=== PATIENT | male | born 1955 | race Caucasian/White ===

== ENCOUNTER 2016-10-01 10:09 | Emergency (ER) | payer OTHER ==
[2016-10-01] MEDS ORDERED: Sodium Chloride 0.9% 10 ML Syringe FLUSH PRN (10:26)
[2016-10-01] MEDS ORDERED: Aspirin 81 MG Tab.Chew PO ONE (10:26)
[2016-10-01] MEDS ORDERED: Tenecteplase 50 MG Kit IV ONE (10:27)
[2016-10-01] MEDS ORDERED: Heparin Sodium 5,000 Units/ML Vial IVPUSH ONE (10:27)
[2016-10-01] MEDS ORDERED: Tenecteplase 50 MG Kit ONE (10:28)
[2016-10-01] MEDS ORDERED: Heparin Sodium/D5W 25,000 UNITS/500 ML BAG IV SCH (10:30)
[2016-10-01] MEDS: Nitroglycerin 0.4 MG Tab.SL SL PRN ×3 (10:48→10:58)
[2016-10-01] MEDS ORDERED: Clopidogrel 75 MG Tab PO ONE (10:56)
--- NOTE | 2016-10-01 10:56 | EDM.PDOC ---
ED HPI GENERAL MEDICAL PROBLEM - General Chief Complaint: Chest Pain Stated Complaint: CHEST PAIN Time Seen by Provider: 10/01/16 10:13 Source of Information: Reports: Patient History Limitations: Reports: No Limitations - History of Present Illness INITIAL COMMENTS - FREE TEXT/NARRATIVE: The patient presents with chest pain. Yesterday he had an episode about 1:30 and it went away after 30 minutes. He has shortness of breath and he is diaphoretic with it. It is worse with exertion. He does not have a history of ID. He does not smoke and he has no history of HTN. He does not have a history of diabetes. He denies fever or chills. He has no abdominal pain, nausea and vomiting. This episode started at 8:30 this morning. Onset: Sudden Duration: Hour(s): (8:30 this morning) Location: Reports: Chest Quality: Reports: Sharp (and squeezing) Severity: Moderate Improves with: Reports: None Worsens with: Reports: Movement Associated Symptoms: Reports: Chest Pain, Shortness of Breath Right Chest Pain Score (Numeric/FACES): 5 - Related Data Allergies Allergy/AdvReac Type Severity Reaction Status Date / Time No Known Allergies Allergy Verified 10/01/16 10:11 Home Meds: Home Meds Aspirin [Kristian Chewable] 81 mg PO DAILY 07/28/15 [History] Past Medical History - Infectious Disease History Infectious Disease History: Reports: Chicken Pox, Mumps - Past Surgical History HEENT Surgical History: Reports: Tonsillectomy GI Surgical History: Reports: Appendectomy Musculoskeletal Surgical History: Reports: Shoulder Surgery Social & Family History - Family History Family Medical History: Noncontributory - Tobacco Use Smoking Status *Q: Never Smoker Second Hand Smoke Exposure: No - Caffeine Use Caffeine Use: Reports: None - Recreational Drug Use Recreational Drug Use: No ED ROS GENERAL - Review of Systems Review Of Systems: See Below Constitutional: Reports: No Symptoms HEENT: Reports: No Symptoms Respiratory: Reports: Shortness of Breath Cardiovascular: Reports: Chest Pain Endocrine: Reports: No Symptoms GI/Abdominal: Reports: No Symptoms : Reports: No Symptoms Musculoskeletal: Reports: No Symptoms Skin: Reports: Diaphoresis Neurological: Reports: No Symptoms ED EXAM, GENERAL - Physical Exam Exam: See Below Exam Limited By: No Limitations General Appearance: Alert, No Apparent Distress Ears: Normal External Exam Nose: Normal Inspection Head: Atraumatic, Normocephalic Neck: Normal Inspection Respiratory/Chest: No Respiratory Distress, Lungs Clear, Normal Breath Sounds Cardiovascular: Regular Rate, Rhythm, No Edema, No Murmur GI/Abdominal: Soft, Non-Tender, No Organomegaly, No Mass Back Exam: Normal Inspection Extremities: Normal Inspection Neurological: Alert, Oriented, No Motor/Sensory Deficits EKG INTERPRETATION EKG Date: 10/01/16 Time: 10:14 Rhythm: NSR Rate (beats/min): 61 Blue: normal P-wave: present QRS: normal ST-T: elevated (V2 through V6) QT: normal Course - Vital Signs Last Recorded V/S: Last Vital Signs Temp 98.4 F 10/01/16 10:12 Pulse 64 10/01/16 10:12 Resp 13 10/01/16 10:12 BP 163/101 H 10/01/16 10:12 Pulse Ox 100 10/01/16 10:12 - Orders/Labs/Meds Orders: Active Orders 24 hr Category Date Time Status Cardiac Monitoring [RC] . DIRECTED Care 10/01/16 10:26 Active EKG Documentation Completion [RC] STAT Care 10/01/16 10:26 Active Oxygen Therapy [RC] PRN Care 10/01/16 10:26 Active Peripheral IV Care [RC] . DIRECTED Care 10/01/16 10:27 Active Chest 1V Frontal [CR] Stat Exams 10/01/16 10:27 Taken CBC W/O DIFF,HEMOGRAM [HEME] MOTH@0700 Lab 10/04/16 07:00 Ordered CBC W/O DIFF,HEMOGRAM [HEME] MOTH@0700 Lab 10/07/16 07:00 Ordered CBC W/O DIFF,HEMOGRAM [HEME] MOTH@0700 Lab 10/11/16 07:00 Ordered CBC W/O DIFF,HEMOGRAM [HEME] MOTH@0700 Lab 10/14/16 07:00 Ordered CBC W/O DIFF,HEMOGRAM [HEME] MOTH@0700 Lab 10/18/16 07:00 Ordered CBC W/O DIFF,HEMOGRAM [HEME] MOTH@0700 Lab 10/21/16 07:00 Ordered COMPREHENSIVE METABOLIC PN,CMP [CHEM] Stat Lab 10/01/16 10:26 Ordered TROPONIN I [CHEM] Stat Lab 10/01/16 10:26 Ordered Heparin Sodium/D5W [Heparin 25,000 Units in D5W 500 ML] Med 10/01/16 10:30 Active 25,000 units in 500 ml IV TITRATE Sodium Chloride 0.9% [Saline Flush] Med 10/01/16 10:26 Active 10 ml FLUSH ASDIRECTED PRN Peripheral IV Insertion Adult [OM.PC] Stat Oth 10/01/16 10:26 Ordered Medication Orders Heparin Sodium/Dextrose (Heparin 25,000 Units In D5w 500 Ml) 25,000 units in 500 mls @ 21.222 mls/hr IV TITRATE ALESHA; 9 UNITS/KG/HR PRN Reason: Protocol Sodium Chloride (Saline Flush) 10 ml FLUSH ASDIRECTED PRN PRN Reason: Keep Vein Open Labs: Laboratory Tests 10/01/16 Range/Units 10:35 WBC 6.83 (4.23-9.07) K/mm3 RBC 5.48 (4.63-6.08) M/mm3 Hgb 15.6 (13.7-17.5) gm/L Hct 45.6 (40.1-51.0) % MCV 83.2 (79.0-92.2) fl MCH 28.5 (25.7-32.2) pg MCHC 34.2 (32.2-35.5) g/dl RDW Std Deviation 39.8 (35.1-43.9) fL Plt Count 214 (163-337) K/mm3 MPV 10.7 (9.4-12.3) fl Neut % (Auto) 70.1 H (34.0-67.9) % Lymph % (Auto) 20.1 L (21.8-53.1) % [place] % (Auto) 6.7 (5.3-12.2) % Eos % (Auto) 2.6 (0.8-7.0) Baso % (Auto) 0.4 (0.1-1.2) % Neut # (Auto) 4.78 (1.78-5.38) K/mm3 Lymph # (Auto) 1.37 (1.32-3.57) K/mm3 [place] # (Auto) 0.46 (0.30-0.82) K/mm3 Eos # (Auto) 0.18 (0.04-0.54) K/mm3 Baso # (Auto) 0.03 (0.01-0.08) K/mm3 Meds: Medications Generic Name Dose Route Start Last Admin Trade Name Freq PRN Reason Stop Dose Admin Heparin Sodium/Dextrose 25,000 units in 500 mls @ 21.222 mls/hr 10/01/16 10: 30 Heparin 25,000 Units In D5w 500 Ml IV TITRATE ALESHA Protocol 9 UNITS/KG/HR Sodium Chloride 10 ml 10/01/16 10:26 Saline Flush FLUSH ASDIRECTED PRN Keep Vein Open Discontinued Medications Generic Name Dose Route Start Last Admin Trade Name Freq PRN Reason Stop Dose Admin Aspirin 324 mg 10/01/16 10:26 Aspirin PO 10/01/16 10:27 ONETIME ONE Clopidogrel Bisulfate 300 mg 10/01/16 10:56 Plavix PO 10/01/16 10:57 ONETIME ONE Heparin Sodium (Porcine) 5,000 units 10/01/16 10:27 Heparin Sodium IVPUSH 10/01/16 10:28 ONETIME ONE Nitroglycerin 0.4 mg 10/01/16 10:29 Nitrostat SL 10/01/16 10:40 Q5M PRN Chest Pain Tenecteplase Confirm 10/01/16 10:28 Tnkase Administered 10/01/16 10:29 Dose 50 mg .ROUTE .STK-MED ONE Tenecteplase 50 mg 10/01/16 10:27 Tnkase IV 10/01/16 10:28 ONETIME ONE Protocol - Re-Assessments/Exams Free Text/Narrative Re-Assessment/Exam: 10/01/16 11:05 I ordered an IV saline lock, oxygen, aspirin, EKG, labs and CXR. His EKG shows a NSR with ST elevation in the anteriorlateral leads. This is consistent with a STEMI. I ordered TnKase 50mg IV, nitro 0.4mg SL X 3, heparin bolus of 5,000 units, and 1,000units per hour. I called [facility] and talked with Dr De Dios and he accepted the patient. 10/01/16 11:08 I also talked with Dr Sanchez in the ER. Departure - Departure Time of Disposition: 11:15 Disposition: DC/Tfer to Acute Hospital 02 Reason for Transfer *Q: Primary PCI Indicated Condition: serious Clinical Impression: ST elevation (STEMI) myocardial infarction Qualifiers: Involved coronary artery: other anterior wall coronary artery Qualified Code(s) : I21.09 - ST elevation (STEMI) myocardial infarction involving other coronary artery of anterior wall Forms: ED Department Discharge - My Orders Last 24 Hours: My Active Orders 10/01/16 10:26 Cardiac Monitoring [RC] . DIRECTED EKG Documentation Completion [RC] STAT Oxygen Therapy [RC] PRN COMPREHENSIVE METABOLIC PN,CMP [CHEM] Stat TROPONIN I [CHEM] Stat Sodium Chloride 0.9% [Saline Flush] 10 ml FLUSH ASDIRECTED PRN Peripheral IV Insertion Adult [OM.PC] Stat 10/01/16 10:27 Peripheral IV Care [RC] . DIRECTED Chest 1V Frontal [CR] Stat 10/01/16 10:30 Heparin Sodium/D5W [Heparin 25,000 Units in D5W 500 ML] 25,000 units in 500 ml IV TITRATE 10/04/16 07:00 CBC W/O DIFF,HEMOGRAM [HEME] MOTH@0700 10/07/16 07:00 CBC W/O DIFF,HEMOGRAM [HEME] MOTH@0700 10/11/16 07:00 CBC W/O DIFF,HEMOGRAM [HEME] MOTH@0700 10/14/16 07:00 CBC W/O DIFF,HEMOGRAM [HEME] MOTH@0700 10/18/16 07:00 CBC W/O DIFF,HEMOGRAM [HEME] MOTH@0700 10/21/16 07:00 CBC W/O DIFF,HEMOGRAM [HEME] MOTH@0700 - Assessment/Plan Last 24 Hours: My Active Orders 10/01/16 10:26 Cardiac Monitoring [RC] . DIRECTED EKG Documentation Completion [RC] STAT Oxygen Therapy [RC] PRN COMPREHENSIVE METABOLIC PN,CMP [CHEM] Stat TROPONIN I [CHEM] Stat Sodium Chloride 0.9% [Saline Flush] 10 ml FLUSH ASDIRECTED PRN Peripheral IV Insertion Adult [OM.PC] Stat 10/01/16 10:27 Peripheral IV Care [RC] . DIRECTED Chest 1V Frontal [CR] Stat 10/01/16 10:30 Heparin Sodium/D5W [Heparin 25,000 Units in D5W 500 ML] 25,000 units in 500 ml IV TITRATE 10/04/16 07:00 CBC W/O DIFF,HEMOGRAM [HEME] MOTH@0700 10/07/16 07:00 CBC W/O DIFF,HEMOGRAM [HEME] MOTH@69910/11/16 07:00 CBC W/O DIFF,HEMOGRAM [HEME] MOTH@69910/14/16 07:00 CBC W/O DIFF,HEMOGRAM [HEME] MOTH@69910/18/16 07:00 CBC W/O DIFF,HEMOGRAM [HEME] MOTH@69910/21/16 07:00 CBC W/O DIFF,HEMOGRAM [HEME] MOTH@699
[2016-10-01 15:55] VITALS: BP 130/82
--- NOTE | 2016-10-04 10:19 | CR ---
Chest: Frontal view of the chest was obtained. Comparison: Previous chest x-ray of 07/28/[address] of 07/28/15. Heart size and mediastinum are within normal limits for technique. Lungs are clear. No discrete bony abnormality is identified. Impression: 1. Nothing acute is identified on portable chest x-ray. Diagnostic code #1 MTDD
== END 2016-10-01 11:40 ==
LOC: JD.ED 10:09 → SUPCPDRO 10:09 → JD.ED 11:40
DX: I21.09 ST elevation (STEMI) myocardial infarction involving other coronary artery of anterior wall (principal); Z90.49 Acquired absence of other specified parts of digestive tract; Z98.890 Other specified postprocedural states; Z79.82 Long term (current) use of aspirin
CPT/HCPCS: 36415; 71010; 80053; 84484; 85025; 93005; 96365; 96375; 99285; A9270; J1644; J3101; J7050

== ENCOUNTER 2017-04-22 13:52 | Emergency (ER) | payer SELFPAY ==
[2017-04-22] MEDS ORDERED: Nitroglycerin 0.4 MG Tab.SL SL PRN (14:02)
[2017-04-22] MEDS ORDERED: Aspirin 81 MG Tab.Chew PO ONE (14:02)
[2017-04-22] MEDS ORDERED: Sodium Chloride 0.9% 10 ML Syringe FLUSH PRN (14:02)
[2017-04-22 14:25] VITALS: BP 132/82
--- NOTE | 2017-04-22 14:49 | CR ---
Chest: Portable view of the chest was obtained. Comparison: Prior chest x-ray of 10/01/16. Heart size is normal. Mild tortuosity of the thoracic aorta is seen. Lungs are clear. Bony structures are grossly intact. Impression: 1. Nothing acute is seen on portable chest x-ray. Diagnostic code #1
--- NOTE | 2017-04-22 15:52 | EDM.PDOC ---
ED HPI GENERAL MEDICAL PROBLEM - General Chief Complaint: Chest Pain Stated Complaint: CHEST PAIN Time Seen by Provider: 04/22/17 13:58 Source of Information: Reports: Patient History Limitations: Reports: No Limitations - History of Present Illness INITIAL COMMENTS - FREE TEXT/NARRATIVE: The patient presents with right to mid chest pain. This started about 10:30 this morning. He was not doing anything strenuous. The pain is sharp. It does not radiate anywhere. He has no shortness of breath. He has no fever, chills, cough, abdominal pain, nausea or vomiting. Nothing makes the pain better. It feels like his past MT. He has a STEMI in September of this year. He then had another heart cath in early April. He has been having some chest pain at times and he has some nitro at home. Onset: Sudden Duration: Hour(s): (10:30am) Location: Reports: Chest Quality: Reports: Sharp Severity: Moderate Improves with: Reports: None Worsens with: Reports: None Context: Reports: Other (He was not doing anything strenuous when this started) Associated Symptoms: Reports: Chest Pain. Denies: Cough, Fever/Chills, Headaches, Nausea/Vomiting, Shortness of Breath Right Chest Pain Score (Numeric/FACES): 3 - Related Data Allergies Allergy/AdvReac Type Severity Reaction Status Date / Time No Known Allergies Allergy Verified 01/04/17 06:11 Home Meds: Home Meds Aspirin [Kristian Chewable] 81 mg PO DAILY 07/28/15 [History] Rosuvastatin Calcium 20 mg PO DAILY 10/13/16 [History] Ticagrelor [Brilinta] 90 mg PO BID 10/13/16 [History] Multivitamin [Multivitamins] 1 cap PO DAILY 12/01/16 [History] Isosorbide Mononitrate [Imdur] 30 mg PO DAILY #30 tab.er 04/22/17 [Rx] Past Medical History Cardiovascular History: Reports: MT, Stents Psychiatric History: Reports: Anxiety, Depression - Infectious Disease History Infectious Disease History: Reports: Chicken Pox, Mumps - Past Surgical History HEENT Surgical History: Reports: Tonsillectomy GI Surgical History: Reports: Appendectomy Musculoskeletal Surgical History: Reports: Shoulder Surgery Social & Family History - Family History Family Medical History: Noncontributory - Tobacco Use Smoking Status *Q: Never Smoker Second Hand Smoke Exposure: No - Caffeine Use Caffeine Use: Reports: Coffee, Soda - Recreational Drug Use Recreational Drug Use: No ED ROS GENERAL - Review of Systems Review Of Systems: See Below Constitutional: Reports: No Symptoms HEENT: Reports: No Symptoms Respiratory: Reports: No Symptoms Cardiovascular: Reports: Chest Pain Endocrine: Reports: No Symptoms GI/Abdominal: Reports: No Symptoms : Reports: No Symptoms Musculoskeletal: Reports: No Symptoms Skin: Reports: No Symptoms ED EXAM, GENERAL - Physical Exam Exam: See Below Exam Limited By: No Limitations General Appearance: Alert, No Apparent Distress Ears: Normal External Exam Nose: Normal Inspection Head: Atraumatic, Normocephalic Neck: Normal Inspection Respiratory/Chest: No Respiratory Distress, Lungs Clear, Normal Breath Sounds Cardiovascular: Regular Rate, Rhythm, No Edema, No Murmur GI/Abdominal: Soft, Non-Tender, No Organomegaly, No Mass Back Exam: Normal Inspection Extremities: Normal Inspection EKG INTERPRETATION EKG Date: 04/22/17 Time: 13:57 Rhythm: NSR Rate (Beats/Min): 61 [place]: Normal P-Wave: Present QRS: Normal ST-T: Normal QT: Normal DC/PQ Interval: 1st degree HB Course - Vital Signs Last Recorded V/S: Last Vital Signs Temp 96.2 F 04/22/17 14:01 Pulse 68 04/22/17 14:01 Resp 20 04/22/17 14:01 BP 132/82 04/22/17 14:23 Pulse Ox 100 04/22/17 14:01 - Orders/Labs/Meds Orders: Active Orders 24 hr Category Date Time Status Cardiac Monitoring [RC] . DIRECTED Care 04/22/17 14:02 Active EKG Documentation Completion [RC] ASDIRECTED Care 04/22/17 16:48 Active EKG Documentation Completion [RC] STAT Care 04/22/17 14:03 Active Oxygen Therapy [RC] PRN Care 04/22/17 14:03 Active Peripheral IV Care [RC] . DIRECTED Care 04/22/17 14:03 Active TROPONIN I [CHEM] Stat Lab 04/22/17 16:48 Ordered Nitroglycerin [Nitrostat] Med 04/22/17 14:02 Active 0.4 mg SL Q5M PRN Sodium Chloride 0.9% [Saline Flush] Med 04/22/17 14:02 Active 10 ml FLUSH ASDIRECTED PRN Peripheral IV Insertion Adult [OM.PC] Stat Oth 04/22/17 14:02 Ordered EKG 12 Lead [EK] Stat Ther 04/22/17 16:47 Ordered Medication Orders Nitroglycerin (Nitrostat) 0.4 mg SL Q5M PRN PRN Reason: Chest Pain Stop: 04/23/17 14:03 Last Admin: 04/22/17 14:23 Dose: 0.4 mg Sodium Chloride (Saline Flush) 10 ml FLUSH ASDIRECTED PRN PRN Reason: Keep Vein Open Last Admin: 04/22/17 14:23 Dose: 10 ml Labs: Laboratory Tests 04/22/17 04/22/17 Range/Units 14:20 14:20 WBC 5.09 (4.23-9.07) K/mm3 RBC 4.72 (4.63-6.08) M/mm3 Hgb 13.5 L (13.7-17.5) gm/L Hct 40.0 L (40.1-51.0) % MCV 84.7 (79.0-92.2) fl MCH 28.6 (25.7-32.2) pg MCHC 33.8 (32.2-35.5) g/dl RDW Std Deviation 40.8 (35.1-43.9) fL Plt Count 178 (163-337) K/mm3 MPV 10.2 (9.4-12.3) fl Neut % (Auto) 62.6 (34.0-67.9) % Lymph % (Auto) 26.9 (21.8-53.1) % [place] % (Auto) 7.3 (5.3-12.2) % Eos % (Auto) 2.6 (0.8-7.0) Baso % (Auto) 0.6 (0.1-1.2) % Neut # (Auto) 3.19 (1.78-5.38) K/mm3 Lymph # (Auto) 1.37 (1.32-3.57) K/mm3 [place] # (Auto) 0.37 (0.30-0.82) K/mm3 Eos # (Auto) 0.13 (0.04-0.54) K/mm3 Baso # (Auto) 0.03 (0.01-0.08) K/mm3 Sodium 139 (136-145) mEq/L Potassium 3.9 (3.5-5.1) mEq/L Chloride 104 (98-107) mEq/L Carbon Dioxide 26 (21-32) mEq/L Anion Gap 12.9 (5-15) BUN 19 H (7-18) mg/dL Creatinine 1.1 (0.7-1.3) mg/dL Est Cr Clr Drug Dosing 90.02 mL/min Estimated GFR (MDRD) > 60 (>60) mL/min BUN/Creatinine Ratio 17.3 (14-18) Glucose 133 H (80-115) mg/dL Calcium 9.4 (8.5-10.1) mg/dL Total Bilirubin 1.9 H (0.2-1.0) mg/dL AST 24 (15-37) U/L ALT 31 (16-63) U/L Alkaline Phosphatase 57 (46-116) U/L Troponin I < 0.017 (0.00-0.056) ng/mL Total Protein 6.8 (6.4-8.2) g/dl Albumin 3.8 (3.4-5.0) g/dl Globulin 3.0 gm/dL Albumin/Globulin Ratio 1.3 (1-2) Meds: Medications Generic Name Dose Route Start Last Admin Trade Name Ginny PRN Reason Stop Dose Admin Nitroglycerin 0.4 mg 04/22/17 14:02 04/22/17 14:23 Nitrostat SL 04/23/17 14:03 0.4 mg Q5M PRN Administration Chest Pain Sodium Chloride 10 ml 04/22/17 14:02 04/22/17 14:23 Saline Flush FLUSH 10 ml ASDIRECTED PRN Administration Keep Vein Open Discontinued Medications Generic Name Dose Route Start Last Admin Trade Name Freq PRN Reason Stop Dose Admin Aspirin 324 mg 04/22/17 14:02 04/22/17 14:22 Aspirin PO 04/22/17 14:03 324 mg ONETIME ONE Administration - Re-Assessments/Exams Free Text/Narrative Re-Assessment/Exam: 04/22/17 16:57 I ordered an IV saline lock, EKG, CXR, labs, aspirin 324mg by mouth and nitro. His EKG shows a NSR at a rate of 61 with no acute changes. His CXR looks good. His CBC and CMP looks good. His troponin is negative. His pain is better but not gone. I called Dr at [facility] in [place]. She is his account representative. She did not fee he is having an MT at this point. She wanted him on some imdur and repeat the troponin. His repeat EKG after 3 hours shows no changes. I will draw his blood and discharge him. I will call him with the results. Departure - Departure Time of Disposition: 17:05 Disposition: Home, Self-Care 01 Condition: Good Clinical Impression: Chest pain Qualifiers: Chest pain type: unspecified Qualified Code(s): R07.9 - Chest pain, unspecified Prescriptions: Isosorbide Mononitrate [Imdur] 30 mg PO DAILY #30 tab.er Referrals: Dayday Mendieta MD [Primary Care Provider] - Forms: ED Department Discharge Additional Instructions: Take your medication as prescribed. Take imdur daily. Someone from [facility] will call you on Tuesday for a follow up appointment with Dr Griggs. Please return if you are worse. - My Orders Last 24 Hours: My Active Orders 04/22/17 14:02 Cardiac Monitoring [RC] . DIRECTED Nitroglycerin [Nitrostat] 0.4 mg SL Q5M PRN Sodium Chloride 0.9% [Saline Flush] 10 ml FLUSH ASDIRECTED PRN Peripheral IV Insertion Adult [OM.PC] Stat 04/22/17 14:03 EKG Documentation Completion [RC] STAT Oxygen Therapy [RC] PRN Peripheral IV Care [RC] . DIRECTED 04/22/17 16:47 EKG 12 Lead [EK] Stat 04/22/17 16:48 EKG Documentation Completion [RC] ASDIRECTED TROPONIN I [CHEM] Stat - Assessment/Plan Last 24 Hours: My Active Orders 04/22/17 14:02 Cardiac Monitoring [RC] . DIRECTED Nitroglycerin [Nitrostat] 0.4 mg SL Q5M PRN Sodium Chloride 0.9% [Saline Flush] 10 ml FLUSH ASDIRECTED PRN Peripheral IV Insertion Adult [OM.PC] Stat 04/22/17 14:03 EKG Documentation Completion [RC] STAT Oxygen Therapy [RC] PRN Peripheral IV Care [RC] . DIRECTED 04/22/17 16:47 EKG 12 Lead [EK] Stat 04/22/17 16:48 EKG Documentation Completion [RC] ASDIRECTED TROPONIN I [CHEM] Stat
== END 2017-04-22 17:10 | disposition home or self-care (01) ==
LOC: JD.ED 13:52
DX: R07.9 Chest pain, unspecified (principal); Z79.82 Long term (current) use of aspirin; Z79.899 Other long term (current) drug therapy
CPT/HCPCS: 36415; 71010; 80053; 84484; 85025; 93005; 99285; A9270; J7050; 93010; 99283-25

== ENCOUNTER 2019-12-10 06:19 | Day surgery (SDC) | payer OTHER ==
[~2019-12-10 06:19] MED LIST: Lactated Ringers 1,000 ML IV SCH; Lidocaine 1%/Sod Bicarbonate in NS 8.4% 1 ML Syringe IDERM PRN; Sodium Chloride 0.9% 10 ML Syringe FLUSH PRN
[2019-12-10] MEDS ORDERED: Bupivacaine 0.25% 10 ML SDV ONE (06:32)
--- NOTE | 2019-12-10 06:59 | PCM.PREANE ---
Preanesthetic Assessment - Procedure Proposed Procedure: Knee arthroscopy - Review of Systems General: No Symptoms Pulmonary: No Symptoms Cardiovascular: No Symptoms Gastrointestinal: No Symptoms Neurological: No Symptoms Other: Reports: None - Physical Assessment NPO Status Date: 12/09/19 NPO Status Time: 23:30 Vital Signs: Last Vital Signs Temp 97.0 F 12/10/19 06:20 Pulse 62 12/10/19 06:20 Resp 16 12/10/19 06:20 BP 139/86 12/10/19 06:20 Pulse Ox 97 12/10/19 06:20 Height: 1.98 m Weight: 113.398 kg ASA Class: 2 Mental Status: Alert & Oriented x3 Airway Class: Mallampati = 2 Dentition: Reports: Normal Dentition Thyro-Mental Finger Breadths: 3 Mouth Opening Finger Breadths: 3 ROM/Head Extension: Full Lungs: Clear to Auscultation, Normal Respiratory Effort Cardiovascular: Regular Rate, Regular Rhythm - Lab Values: Laboratory Last Values COVID-19 PCR Not detected (NOT DETECT) 12/06/19 11:00 - Allergies Allergies/Adverse Reactions: Allergies Allergy/AdvReac Type Severity Reaction Status Date / Time No Known Allergies Allergy Verified 12/09/19 17:24 - Acknowledgements Anesthesia Type Planned: General Anesthesia Pt an Appropriate Candidate for the Planned Anesthesia: Yes Alternatives and Risks of Anesthesia Discussed w Pt/Guardian: Yes Pt/Guardian Understands and Agrees with Anesthesia Plan: Yes PreAnesthesia Questionnaire HEENT History: Reports: Other (See Below) Other HEENT History: ear pain, nasal congestion, left ear otitis externa Cardiovascular History: Reports: CAD, High Cholesterol, Hypertension, [place], Stents Respiratory History: Reports: None Gastrointestinal History: Reports: None Genitourinary History: Reports: BPH, Other (See Below) Other Genitourinary History: erectile dysfunction [employer]ICIAN History: Reports: None Musculoskeletal History: Reports: Other (See Below) Other Musculoskeletal History: right knee pain Neurological History: Reports: Seizure (seizure like symptoms in late 1990) Psychiatric History: Reports: Anxiety, Depression Endocrine/Metabolic History: Reports: Other (See Below) Other Endocrine/Metabolic History: pre diabetes Hematologic History: Reports: None Immunologic History: Reports: None Oncologic (Cancer) History: Reports: None Dermatologic History: Reports: None - Infectious Disease History Infectious Disease History: Reports: Chicken Pox, Mumps - Past Surgical History HEENT Surgical History: Reports: Tonsillectomy Cardiovascular Surgical History: Reports: None Respiratory Surgical History: Reports: None GI Surgical History: Reports: Appendectomy, Colonoscopy Male Surgical History: Reports: Vasectomy Endocrine Surgical History: Reports: None Neurological Surgical History: Reports: None Musculoskeletal Surgical History: Reports: Shoulder Surgery Oncologic Surgical History: Reports: None Dermatological Surgical History: Reports: None - SUBSTANCE USE Smoking Status *Q: Never Smoker Recreational Drug Use History: No - HOME MEDS Home Medications: Home Meds Rosuvastatin Calcium 20 mg PO DAILY 10/13/16 [History] Clopidogrel Bisulfate [Clopidogrel] 75 mg PO DAILY 12/09/19 [History] Colchicine [Colcrys] 0.6 mg PO BID PRN 12/09/19 [History] Losartan Potassium 25 mg PO DAILY 12/09/19 [History] Nitroglycerin [Nitrostat] 0.4 mg SL ASDIRECTED PRN 12/09/19 [History] Tamsulosin [Flomax] 0.4 mg PO DAILY 12/09/19 [History] hydroCHLOROthiazide [Hydrochlorothiazide] 12.5 mg PO DAILY 12/09/19 [History] metFORMIN HCl [Metformin HCl] 1,000 mg PO DAILY 12/09/19 [History] tadalafiL [Tadalafil] 20 mg PO ASDIRECTED PRN 12/09/19 [History] Acetaminophen/HYDROcodone [Clymer 325-5 MG] 1 - 2 tab PO Q6H PRN #20 tablet 12/10/19 [Rx] Aspirin [Kristina Chewable Aspirin] 81 mg PO BID #84 tab.chew 12/10/19 [Rx] - CURRENT (IN HOUSE) MEDS Current Meds: Current Medications Lactated Ringer's (Ringers, Lactated) 1,000 mls @ 125 mls/hr IV ASDIRECTED ALESHA Stop: 12/10/19 23:00 Lidocaine/Sodium Bicarbonate (Buffered Lidocaine 1% In Ns 8.4%) 0.25 ml IDERM ONETIME PRN PRN Reason: Prior to IV Start Stop: 12/10/19 23:00 Sodium Chloride (Saline Flush) 10 ml FLUSH ASDIRECTED PRN PRN Reason: Keep Vein Open Stop: 12/10/19 23:00 Discontinued Medications Bupivacaine HCl (Sensorcaine-Mpf 0.25%) Confirm Administered Dose 10 ml .ROUTE .STK-MED ONE Stop: 12/10/19 06:33
[2019-12-10] MEDS ORDERED: Midazolam 1 MG/ML 2 ML SDV ONE (07:01)
[2019-12-10] MEDS ORDERED: fentaNYL 250 MCG/5 ML SDV ONE (07:01)
[2019-12-10] MEDS ORDERED: Propofol 200 MG/20 ML SDV ONE (07:01)
[2019-12-10] MEDS ORDERED: Lidocaine 1% 4 ML ONE (07:03)
[2019-12-10] MEDS ORDERED: ceFAZolin 1 GM Vial ONE (07:03)
[2019-12-10] MEDS ORDERED: Lactated Ringers 1,000 ML ONE (07:17)
[2019-12-10] MEDS ORDERED: Ondansetron 4 MG/2 ML SDV ONE (07:32)
[2019-12-10] MEDS ORDERED: fentaNYL 100 MCG/2 ML SDV IVPUSH PRN (07:47)
[2019-12-10] MEDS ORDERED: HYDROmorphone 0.5 MG/0.5 ML Syringe IVPUSH PRN (07:47)
--- NOTE | 2019-12-10 08:12 | PCM.POSTAN ---
POST ANESTHESIA ASSESSMENT - MENTAL STATUS Mental Status: Somnolent - VITAL SIGNS Vital Signs: Last Vital Signs Temp 97.9 F 12/10/19 08:05 Pulse 62 12/10/19 06:20 Resp 9 L 12/10/19 08:05 BP 103/63 12/10/19 08:05 Pulse Ox 92 L 12/10/19 08:05 - RESPIRATORY Respiratory Status: Respiratory Rate WNL, Airway Patent, O2 Saturation Stable - CARDIOVASCULAR CV Status: Pulse Rate WNL, Blood Pressure Stable - GASTROINTESTINAL GI Status: No Symptoms - PAIN Pain Score: 0 - POST OP HYDRATION Hydration Status: Adequate & Stable
--- NOTE | 2019-12-10 08:14 | PCM.OPNOTE ---
- General Post-Op/Procedure Note Date of Surgery/Procedure: 12/10/19 Operative Procedure(s): right knee video arthroscopy with partial medial meniscectomy and partialy synovectomy Pre Op Diagnosis: right knee medial meniscus tear Post-Op Diagnosis: same with desi Primary Surgeon: Cirilo Kinney Anesthesia Provider: Betito Honeycutt Baby Formula Worker: Chey Guzman in mLs: 5 Complications: None Condition: Good
--- NOTE | 2019-12-10 08:54 | PCM48HPAN ---
Post Anesthesia Note - EVALUATION WITHIN 48HRS OF ANESTHETIC Vital Signs in Normal Range: Yes Patient Participated in Evaluation: Yes Respiratory Function Stable: Yes Airway Patent: Yes Cardiovascular Function Stable: Yes Hydration Status Stable: Yes Pain Control Satisfactory: Yes Nausea and Vomiting Control Satisfactory: Yes Mental Status Recovered: Yes Vital Signs: Last Vital Signs Temp 97.9 F 12/10/19 08:45 Pulse 62 12/10/19 06:20 Resp 11 L 12/10/19 08:45 BP 110/75 12/10/19 08:45 Pulse Ox 97 12/10/19 08:45 - COMMENTS/OBSERVATIONS Free Text/Narrative:: No anesthesia complications. Patient is in stage II recovery prior to home discharge.
[2019-12-10 09:25] VITALS: BP 130/75; PULSE 54
--- NOTE | 2019-12-12 09:22 | OR ---
DATE OF OPERATION: 12/10/2019 SURGEON: Cirilo Kinney MD OPERATION PERFORMED: Right knee video arthroscopy, partial medial meniscectomy, and partial synovectomy. PREOPERATIVE DIAGNOSIS: Right knee medial meniscus tear. POSTOPERATIVE DIAGNOSIS: Right knee medial meniscus tear with plica. ANESTHESIA PROVIDER: Shiela Man. PRODUCT GRADER: Chey Guzman PA-C. ESTIMATED BLOOD LOSS: 5 mL. COMPLICATIONS: None. CONDITION: Stable. DESCRIPTION OF PROCEDURE: The patient was identified in the preop holding area. Proper site was marked and identified by the surgeon. The patient was taken back to the operating theater where after adequate anesthesia, he was placed supine on a flat top table. The left lower extremity was placed in a well leg acosta. Right lower extremity had a C-clamp acosta applied after A nonsterile tourniquet was applied. The foot of bed was then lowered. Right lower extremity was then sterilely prepped and draped in the usual sterile fashion. OR time-out was performed. The patient received 2 g IV Ancef. Right lower extremity was exsanguinated. Tourniquet was insufflated to 250 mmHg. Standard anterolateral portal incision was made and scope trocar was introduced into the knee joint. The patient only had grade 1 chondromalacia of the patellofemoral joint. He did have a significant plica noted on the medial side with synovitis. Attention was turned to medial compartment. Anteromedial portal was then created with the use of a spinal needle. The patient did have a degenerative tear of the posterior 3rd horn of the medial meniscus. At this time, a partial medial meniscectomy of the posterior horn was completed taking roughly 50% of the posterior horn back to a stable rim. The patient had grade 1, possibly grade 2 chondromalacia in a very small area of the medial femoral condyle. ACL was intact in the notch. Lateral compartment showed no chondromalacia changes. At this time, a partial synovectomy was performed of the plica and the synovitis noted in the retropatellar region as well as the medial gutter. This was brought back to a stable rim. Excess saline was drained from the knee. 3-0 nylon suture was used for closure of the skin. The patient had a sterile soft dressing applied and was sent to PACU in stable condition. ANESTHESIA: MMODAL /[id number]
== END 2019-12-10 09:40 | disposition home or self-care (01) ==
LOC: JD.SDS 06:19
PROVIDERS: ATTEND Orthopaedic Surgery
DX: S83.241A Other tear of medial meniscus, current injury, right knee, initial encounter (principal); M67.51 Plica syndrome, right knee; M65.861 Other synovitis and tenosynovitis, right lower leg; M94.261 Chondromalacia, right knee; N40.0 Benign prostatic hyperplasia without lower urinary tract symptoms; E78.00 Pure hypercholesterolemia, unspecified; I10 Essential (primary) hypertension; F41.9 Anxiety disorder, unspecified; F32.9 Major depressive disorder, single episode, unspecified; I25.10 Atherosclerotic heart disease of native coronary artery without angina pectoris; M10.9 Gout, unspecified; E78.5 Hyperlipidemia, unspecified; R73.03 Prediabetes; Z11.59 Encounter for screening for other viral diseases; Z79.899 Other long term (current) drug therapy; Z79.82 Long term (current) use of aspirin; X58.XXXA Exposure to other specified factors, initial encounter
CPT/HCPCS: 29881; 87635; J0690; J2001; J2250; J2405; J2704; J3010; J3490; J7120; 01400; U0002

== ENCOUNTER 2020-07-12 17:24 | Emergency (ER) | payer MEDICARE, OTHER ==
--- NOTE | 2020-07-12 17:37 | EDM.PDOC ---
<Luis Felipe Yuen - Last Filed: 07/12/20 21:26> ED HPI GENERAL MEDICAL PROBLEM - General Chief Complaint: Chest Pain Stated Complaint: CHEST PAIN Time Seen by Provider: 07/12/20 17:37 - History of Present Illness INITIAL COMMENTS - FREE TEXT/NARRATIVE: 65-year-old male presents the emergency room with chest pain. This started about 3 to 4 hours ago. Patient has a positive for cardiac history he is on Plavix and has had 5 stents placed roughly 4 years ago. Over the last couple days he has had some intermittent chest pain that can get better on its own and this has not resolved has been present from the onset time. Pain is basically left lower chest does not radiate. He rates it at a 5/10 at this point. He has not had any associated shortness of breath nausea vomiting with this no diaphoresis. Patient currently takes Plavix with his multiple stents he is treated for hyperlipidemia hypertension and prediabetes. He does not smoke and has a negative smoking history no history of illicit drugs or excessive alcohol use. He did get his Covid shot a few days ago. Left Chest Pain Score (Numeric/FACES): 5 - Related Data Allergies Allergy/AdvReac Type Severity Reaction Status Date / Time No Known Allergies Allergy Verified 07/12/20 17:36 Home Meds: Home Meds Rosuvastatin Calcium 20 mg PO DAILY 10/13/16 [History] Clopidogrel Bisulfate [Clopidogrel] 75 mg PO DAILY 12/09/19 [History] Losartan Potassium 12.5 mg PO DAILY 12/09/19 [History] Tamsulosin [Flomax] 0.4 mg PO DAILY 12/09/19 [History] metFORMIN HCl [Metformin HCl] 750 mg PO BID 12/09/19 [History] tadalafiL [Tadalafil] 20 mg PO ASDIRECTED PRN 12/09/19 [History] Aspirin [Kristian Chewable Aspirin] 81 mg PO BEDTIME 07/12/20 [History] Past Medical History HEENT History: Reports: Other (See Below) Other HEENT History: ear pain, nasal congestion, left ear otitis externa Cardiovascular History: Reports: ND, Stents Respiratory History: Reports: None Gastrointestinal History: Reports: None Genitourinary History: Reports: BPH, Other (See Below) Other Genitourinary History: erectile dysfunction F[employer]ELOPER History: Reports: None Musculoskeletal History: Reports: Other (See Below) Other Musculoskeletal History: right knee pain Neurological History: Reports: Seizure (seizure like symptoms in late 1990ies) Psychiatric History: Reports: Anxiety, Depression Endocrine/Metabolic History: Reports: Other (See Below) Other Endocrine/Metabolic History: pre diabetes Hematologic History: Reports: None Immunologic History: Reports: None Oncologic (Cancer) History: Reports: None Dermatologic History: Reports: None - Infectious Disease History Infectious Disease History: Reports: Chicken Pox, Mumps - Past Surgical History GI Surgical History: Reports: Appendectomy Social & Family History - Family History Family Medical History: No Pertinent Family History - Caffeine Use Caffeine Use: Reports: Coffee, Soda ED ROS GENERAL - Review of Systems Review Of Systems: See Below Constitutional: Reports: No Symptoms HEENT: Reports: No Symptoms Respiratory: Reports: No Symptoms Cardiovascular: Reports: Chest Pain. Denies: Dyspnea on Exertion, Edema, Lightheadedness, Palpitations, Syncope Endocrine: Reports: No Symptoms GI/Abdominal: Reports: No Symptoms : Reports: No Symptoms Musculoskeletal: Reports: No Symptoms Skin: Reports: No Symptoms Neurological: Reports: No Symptoms Psychiatric: Reports: No Symptoms Hematologic/Lymphatic: Reports: No Symptoms ED EXAM, GENERAL - Physical Exam Exam: See Below Exam Limited By: No Limitations General Appearance: Alert, No Apparent Distress Head: Atraumatic, Normocephalic Neck: Normal Inspection, Supple, Non-Tender, Full Range of Motion Respiratory/Chest: No Respiratory Distress, Lungs Clear, Normal Breath Sounds Cardiovascular: Regular Rate, Rhythm, No Edema, No Murmur GI/Abdominal: Normal Bowel Sounds, Soft, Non-Tender Extremities: Normal Inspection, Normal Range of Motion, Non-Tender Neurological: Alert, Oriented, Normal Cognition #1 Interpretation EKG Date: 07/12/20 Rhythm: NSR [place]: Normal P-Wave: Absent (First-degree AV block) QRS: Normal ST-T: Normal QT: Normal Comparison: No Change (No significant change from EKG done on April 27, 2017) EKG Interpretation Comments: Abnormal EKG no acute change Course - Re-Assessments/Exams Free Text/Narrative Re-Assessment/Exam: 07/12/20 18:05 We will check labs including a troponin the patient because of his ED medication is not a candidate for nitrates we will give him couple milligrams of morphine and see if we get his pain gone we will give him aspirin. His EKG shows no acute changes no changes from his last EKG in April 2017. 07/12/20 20:38 Troponin looks good at less than or detectable limits less than 0.017. I did review the situation with Dr. Moore, his supercalender operator helper. She would like for us to check another troponin III 3 hours after the last. Also she wishes for him to stick around for a stress test on Tuesday or Tuesday if it cannot be done Tuesday she will be in [place] with her cardiology clinic and will work him in at the end of the day. Departure - Departure Time of Disposition: 20:41 Disposition: Home, Self-Care Clinical Impression: History of ASCVD (atherosclerotic cardiovascular disease) Chest pain Qualifiers: Chest pain type: unspecified Qualified Code(s): R07.9 - Chest pain, unspecified Referrals: Dayday Mendieta MD [Primary Care Provider] - Forms: ED Department Discharge Additional Instructions: Return to the emergency room with any questions problems or worsening symptoms. Your supercalender operator helper is trying to arrange a stress test for you on Tuesday if this cannot be set up she wants to see you in the [place] [facility] towards the end of her scheduled patients on Tuesday. If the stress test is not arranged for Tuesday she will get one scheduled as soon as she can. <Alem Garcia V - Last Filed: 07/12/20 22:00> Course - Vital Signs Last Recorded V/S: Last Vital Signs Temp 97.3 F 07/12/20 17:25 Pulse 62 07/12/20 17:25 Resp 12 07/12/20 17:25 BP 134/84 07/12/20 17:25 Pulse Ox 98 07/12/20 17:25 - Orders/Labs/Meds Labs: Laboratory Tests 07/12/20 07/12/20 07/12/20 Range/Units 17:30 17:30 17:30 WBC 6.80 (4.23-9.07) K/mm3 RBC 5.01 (4.63-6.08) M/mm3 Hgb 14.3 (13.7-17.5) gm/dl Hct 43.5 (40.1-51.0) % MCV 86.8 (79.0-92.2) fl MCH 28.5 (25.7-32.2) pg MCHC 32.9 (32.2-35.5) g/dl RDW Std Deviation 41.4 (35.1-43.9) fL Plt Count 213 (163-337) K/mm3 MPV 10.8 (9.4-12.3) fl Neut % (Auto) 59.8 (34.0-67.9) % Lymph % (Auto) 25.9 (21.8-53.1) % Cloud % (Auto) 9.3 (5.3-12.2) % Eos % (Auto) 4.3 (0.8-7.0) Baso % (Auto) 0.6 (0.1-1.2) % Neut # (Auto) 4.07 (1.78-5.38) K/mm3 Lymph # (Auto) 1.76 (1.32-3.57) K/mm3 Cloud # (Auto) 0.63 (0.30-0.82) K/mm3 Eos # (Auto) 0.29 (0.04-0.54) K/mm3 Baso # (Auto) 0.04 (0.01-0.08) K/mm3 PT 10.1 (9.7-12.0) SECONDS INR 0.94 APTT 23.4 (21.7-31.4) SECONDS D-Dimer, Quantitative 0.20 (0.19-0.50) mg/L Sodium 144 (136-145) mEq/L Potassium 4.3 (3.5-5.1) mEq/L Chloride 107 (98-107) mEq/L Carbon Dioxide 31 (21-32) mEq/L Anion Gap 10.3 (5-15) BUN 20 H (7-18) mg/dL Creatinine 1.1 (0.7-1.3) mg/dL Est Cr Clr Drug Dosing 86.55 mL/min Estimated GFR (MDRD) > 60 (>60) mL/min BUN/Creatinine Ratio 18.2 H (14-18) Glucose 89 (80-115) mg/dL Calcium 9.7 (8.5-10.1) mg/dL Total Bilirubin 1.4 H (0.2-1.0) mg/dL AST 20 (15-37) U/L ALT 28 (16-63) U/L Alkaline Phosphatase 52 (46-116) U/L Troponin I < 0.017 (0.00-0.056) ng/mL Total Protein 7.2 (6.4-8.2) g/dl Albumin 4.1 (3.4-5.0) g/dl Globulin 3.1 gm/dL Albumin/Globulin Ratio 1.3 (1-2) 07/12/20 Range/Units 21:25 WBC (4.23-9.07) K/mm3 RBC (4.63-6.08) M/mm3 Hgb (13.7-17.5) gm/dl Hct (40.1-51.0) % MCV (79.0-92.2) fl MCH (25.7-32.2) pg MCHC (32.2-35.5) g/dl RDW Std Deviation (35.1-43.9) fL Plt Count (163-337) K/mm3 MPV (9.4-12.3) fl Neut % (Auto) (34.0-67.9) % Lymph % (Auto) (21.8-53.1) % Cloud % (Auto) (5.3-12.2) % Eos % (Auto) (0.8-7.0) Baso % (Auto) (0.1-1.2) % Neut # (Auto) (1.78-5.38) K/mm3 Lymph # (Auto) (1.32-3.57) K/mm3 Cloud # (Auto) (0.30-0.82) K/mm3 Eos # (Auto) (0.04-0.54) K/mm3 Baso # (Auto) (0.01-0.08) K/mm3 PT (9.7-12.0) SECONDS INR APTT (21.7-31.4) SECONDS D-Dimer, Quantitative (0.19-0.50) mg/L Sodium (136-145) mEq/L Potassium (3.5-5.1) mEq/L Chloride (98-107) mEq/L Carbon Dioxide (21-32) mEq/L Anion Gap (5-15) BUN (7-18) mg/dL Creatinine (0.7-1.3) mg/dL Est Cr Clr Drug Dosing mL/min Estimated GFR (MDRD) (>60) mL/min BUN/Creatinine Ratio (14-18) Glucose (80-115) mg/dL Calcium (8.5-10.1) mg/dL Total Bilirubin (0.2-1.0) mg/dL AST (15-37) U/L ALT (16-63) U/L Alkaline Phosphatase (46-116) U/L Troponin I < 0.017 (0.00-0.056) ng/mL Total Protein (6.4-8.2) g/dl Albumin (3.4-5.0) g/dl Globulin gm/dL Albumin/Globulin Ratio (1-2) Meds: Medications Discontinued Medications Generic Name Dose Route Start Last Admin Trade Name Freq PRN Reason Stop Dose Admin Aspirin 324 mg 07/12/20 17:49 07/12/20 18:12 Aspirin 81 Mg Tab.Chew PO 07/12/20 17:50 324 mg ONETIME ONE Administration Morphine Sulfate 2 mg 07/12/20 17:49 07/12/20 18:08 Morphine 2 Mg/Ml Syringe IVPUSH 07/12/20 17:50 2 mg ONETIME ONE Administration - Re-Assessments/Exams Free Text/Narrative Re-Assessment/Exam: 07/12/20 21:59 I did take this over from Dr. Yuen and the repeat troponin is still undetectably low, we will discharge him with the plan that Dr. Yuen has planned out. Sepsis Event Note (ED) - Focused Exam Vital Signs: Vital Signs Temp Pulse Resp BP Pulse Ox 07/12/20 17:25 97.3 F 62 12 134/84 98
[2020-07-12] MEDS ORDERED: Aspirin 81 MG Tab.Chew PO ONE (17:49)
[2020-07-12] MEDS ORDERED: Morphine 2 MG/ML SYRINGE IVPUSH ONE (17:49)
--- NOTE | 2020-07-12 20:02 | CR ---
Chest: Portable view of the chest was obtained. Comparison: Prior chest x-ray of 04/22/17. Heart size is normal. Minimal tortuosity of the thoracic aorta is seen. Lungs show no acute parenchymal change. Bony structures show nothing acute. Impression: 1. Nothing acute is appreciated on portable chest x-ray. Diagnostic code #1
[2020-07-12 22:19] VITALS: BP 118/73; PULSE 53
== END 2020-07-12 22:15 | disposition home or self-care (01) ==
LOC: JD.ED 17:24
DX: R07.9 Chest pain, unspecified (principal); Z86.79 Personal history of other diseases of the circulatory system; I25.2 Old myocardial infarction; N40.0 Benign prostatic hyperplasia without lower urinary tract symptoms; R73.03 Prediabetes; Z79.84 Long term (current) use of oral hypoglycemic drugs; Z79.02 Long term (current) use of antithrombotics/antiplatelets; Z79.82 Long term (current) use of aspirin; Z79.899 Other long term (current) drug therapy
CPT/HCPCS: 36415; 71045; 80053; 84484; 85025; 85379; 85610; 85730; 96374; 99285; A9270; J2270; 93010; 99284

== ENCOUNTER 2021-01-13 14:53 | Emergency (ER) | payer MEDICARE, OTHER ==
[2021-01-13] MEDS ORDERED: Lidocaine 2% Jelly 10 ML Urojet MUCMEM ONE (15:59)
--- NOTE | 2021-01-13 16:00 | EDM.PDOC ---
ED HPI GENERAL MEDICAL PROBLEM - General Chief Complaint: Genitourinary Problem Stated Complaint: NEEDS CATH AFTER PROCEDURE IN [place] Time Seen by Provider: 01/13/21 16:18 Source of Information: Reports: Patient History Limitations: Reports: No Limitations - History of Present Illness INITIAL COMMENTS - FREE TEXT/NARRATIVE: 66-year-old male presents to the ED complaining of inability to void since noon. Patient underwent cystoscopy this morning in [place] at 0800 hrs. central standard time by . Patient is on aspirin and Plavix. He states he has 5 stents in his heart. Last stent was placed about 3 years ago.. Patient was identified to have an enlarged prostate on cystoscopy this morning. He did void with some degree of difficulty at noon today passing some clots per urethra. He had a sense of incomplete emptying of his bladder. By mid afternoon he had to void but was unable to do so and therefore did contact Dr Chaney who in turn contacted me. Patient thus attended the emergency room for evaluation of urinary tract obstruction felt most likely to be due to blood clot occluding his urethra. Onset: Today, Sudden Onset Date: 01/13/21 Onset Time: 15:00 Duration: Hour(s): (Had cystoscopy at 0800 hrs. central standard time in [place] today. Had trouble voiding at noon and by 1500 hrs. was unable to void at all), Getting Worse Location: Reports: Abdomen (Severe lower abdominal cramping pain with inability to void with strong feeling of need to void) Quality: Reports: Ache, Pressure, Other Severity: Severe (Strong colicky component to the pain 10 on a 10) Improves with: Reports: None, Other (A few dribbles of urine does ease the pain a wee bit.) Worsens with: Reports: Movement (Bending over makes it worse.) Context: Denies: Activity Associated Symptoms: Reports: Loss of Appetite. 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 Bladder Pain Score (Numeric/FACES): 10 - Related Data Allergies Allergy/AdvReac Type Severity Reaction Status Date / Time No Known Allergies Allergy Verified 07/12/20 17:36 Home Meds: Home Meds Rosuvastatin Calcium 20 mg PO DAILY 10/13/16 [History] Clopidogrel Bisulfate [Clopidogrel] 75 mg PO DAILY 12/09/19 [History] Losartan Potassium 12.5 mg PO DAILY 12/09/19 [History] Tamsulosin [Flomax] 0.4 mg PO DAILY 12/09/19 [History] metFORMIN HCl [Metformin HCl] 750 mg PO BID 12/09/19 [History] tadalafiL [Tadalafil] 20 mg PO ASDIRECTED PRN 12/09/19 [History] Aspirin [Kristian Chewable Aspirin] 81 mg PO BEDTIME 07/12/20 [History] Past Medical History HEENT History: Reports: Other (See Below) Other HEENT History: ear pain, nasal congestion, left ear otitis externa Cardiovascular History: Reports: [place], Stents Respiratory History: Reports: None Gastrointestinal History: Reports: None Genitourinary History: Reports: BPH, Prostate Disorder, Other (See Below) Other Genitourinary History: erectile dysfunction 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 Musculoskeletal History: Reports: Fracture, Other (See Below) Other Musculoskeletal History: right knee pain Neurological History: Reports: Seizure Psychiatric History: Reports: Anxiety, Depression Endocrine/Metabolic History: Reports: Other (See Below) Other Endocrine/Metabolic History: pre diabetes Hematologic History: Reports: None Immunologic History: Reports: None Oncologic (Cancer) History: Reports: None Dermatologic History: Reports: None - Infectious Disease History Infectious Disease History: Reports: Chicken Pox, Mumps - Past Surgical History HEENT Surgical History: Reports: Tonsillectomy Cardiovascular Surgical History: Reports: Coronary Artery Stent Respiratory Surgical History: Reports: None GI Surgical History: Reports: Appendectomy Male Surgical History: Reports: Vasectomy Musculoskeletal Surgical History: Reports: Shoulder Surgery Social & Family History - Family History Family Medical History: No Pertinent Family History - Caffeine Use Caffeine Use: Reports: Coffee - Living Situation & Occupation Living situation: Reports: Occupation: Employed ED ROS GENERAL - Review of Systems Review Of Systems: See Below Constitutional: Reports: Malaise, Weakness, Fatigue, Decreased Appetite. Denies: Fever, Chills HEENT: Reports: No Symptoms Respiratory: Reports: No Symptoms Cardiovascular: Reports: Blood Pressure Problem. Denies: Claudication, Orthopnea GI/Abdominal: Reports: Constipation (Occasional problems with constipation) : Reports: Frequency, Other (Nocturia x2-3. Known BPH. Erectile dysfunction) Musculoskeletal: Reports: Back Pain (Chronic low back pain. Booked for epidural injections tomorrow in [place] chronic arthritis lower back. Previous treatment 7 years ago with Kenalog injection into the lower facets with good success.) Skin: Reports: No Symptoms Neurological: Reports: Other (Denies any radiculopathy into either lower extremity at this time) Psychiatric: Reports: No Symptoms Hematologic/Lymphatic: Reports: No Symptoms Immunologic: Reports: No Symptoms ED EXAM, RENAL/ - Physical Exam Exam: See Below Exam Limited By: No Limitations General Appearance: Alert, WD/WN, Moderate Distress, Other (Temperature is 36.6. Heart rate 75 and sinus respiratory is 20 O2 sats 98% room air BP 1 [id number]) Eye Exam: Bilateral Eye: Normal Inspection, PERRL Throat/Mouth: Normal Inspection, Normal Lips, Normal Oropharynx Head: Atraumatic, Normocephalic Neck: Normal Inspection, Supple, Non-Tender, Full Range of Motion. No: Lymphadenopathy (L), Lymphadenopathy (R) Respiratory/Chest: No Respiratory Distress, Lungs Clear, Normal Breath Sounds, No Accessory Muscle Use Cardiovascular: Normal Peripheral Pulses, Regular Rate, Rhythm, No Edema, No Gallop, No Murmur, No Rub GI/Abdominal: Normal Bowel Sounds, Soft, Non-Tender, No Organomegaly, No Dist ention, Tender (Suprapubically with faint feeling of semifull bladder. He just voided into a bucket in the room of darkly bloodstained urine. No clots evident), Abnormal Bowel Sounds (All sounds are absent in all 4 quadrants.) (Male) Exam: Circumcised, Other (Some blood at the urethral meatus.) Back Exam: Decreased Range of Motion, Vertebral Tenderness (Paraspinal vertebral tenderness bilaterally from). No: CVA Tenderness (L), CVA Tenderness (R) Extremities: Normal Inspection, Normal Range of Motion, No Pedal Edema ( L3-L5.) Neurological: Alert, Oriented, CN II-XII Intact, Normal Cognition Psychiatric: Normal Affect, Normal Mood, Other (In a good deal of pain at the time of my initial examination.) Skin Exam: Warm, Dry, Intact, Normal Color, No Rash Lymphatic: No Adenopathy Course - Vital Signs Last Recorded V/S: Last Vital Signs Temp 36.6 C 01/13/21 15:59 Pulse 75 01/13/21 15:59 Resp 20 01/13/21 15:59 BP 169/97 H 01/13/21 15:59 Pulse Ox 98 01/13/21 15:59 - Orders/Labs/Meds Meds: Medications Discontinued Medications Generic Name Dose Route Start Last Admin Trade Name Ginny PRN Reason Stop Dose Admin Lidocaine HCl 10 ml 01/13/21 15:59 01/13/21 18:00 Lidocaine 2% Jelly 10 Ml Urojet MUCMEM 01/13/21 16:00 10 ml ONETIME ONE Administration Trimethoprim/Sulfamethoxazole 1 tab 01/13/21 17:19 01/13/21 18:45 Sulfamethoxazole/Trimethoprim 800-160 Mg Tab PO 01/13/21 17:20 1 tab ONETIME ONE Administration - Radiology Interpretation Free Text/Narrative:: 66-year-old male presents to the ED for evaluation of urinary retention. Patient was seen by urology services at [facility] in [place] Dr Chaney at 0800 hrs. standard time for cystoscopy. Patient does have an enlarged prostate and it is causing moderate degree of obstruction. No changes in medication were made. Decisions have to be made in the future as to how to proceed with his enlarged prostate. Patient is on aspirin and Plavix for his numerous coronary artery stents. Patient states around noon he felt the need to void but had difficulty voiding and did pass a few small clots and then urine flowed little more freely. He still had a sense of incomplete emptying of his urinary bladder at that time. By 1500 hrs. today even after drinking lots of fluids he had a feeling of need to void but was unable to do so. He in turn contacted and was instructed to come to the emergency room for further evaluation and likely catheterization and wound irrigation. When I walked into the exam room the patient was able to express approximately 150 mils of blood stained urine with a few clots into a large plastic container. He was still having bladder spasms at that time. He felt though somewhat better. He states the pain was becoming unbearable. Bladder scan done after this voiding revealed 321 mils of urine within his bladder. Therefore we will proceed with a large bore three-way Murillo catheter with plans for boot irrigation. I will give the patient Bactrim double strength tablet since he has had multiple urinary tract procedures today to prevent secondary infection. - Re-Assessments/Exams Free Text/Narrative Re-Assessment/Exam: 01/13/21 18:15 Urine has been coming back crystal-clear with no further sanguinous color to the urine at all or clots. He has completed a 3 L boot irrigation with no problems. Plan will be to leave the Murillo catheter in place for the next 48 to 72 hours depending if there is further blood in the urine. He will return if he has any difficulties with lower abdominal pain and no urine in the drainage bag indicating the tube has become plugged up again. Otherwise he will return on morning to the ED for me to reevaluate him and likely discontinue his Murillo. Departure - Departure Time of Disposition: 18:16 Disposition: Home, Self-Care 01 Condition: Fair Clinical Impression: Urinary retention - Discharge Information *PRESCRIPTION DRUG MONITORING PROGRAM REVIEWED*: Not Applicable *COPY OF PRESCRIPTION DRUG MONITORING REPORT IN PATIENT RY: Not Applicable Instructions: Indwelling Urinary Catheter Care, Adult Referrals: Dayday Mendieta MD [Primary Care Provider] - Forms: ED Department Discharge Additional Instructions: Evaluation in the emergency room today in regards to inability to pass your water after having cystoscopy performed by urology services Dr Chaney at [facility] in [place] today. Identified enlarged prostate gland for which further treatment is being considered. Due to being on aspirin and Plavix it appears that instrumentation did cause some degree of bleeding with clot formation which occluded your urethra making it impossible to pass your water which we call urinary retention. You were able to express some bloody urine in the emergency room but bladder scan revealed 321 mils of urine still within the urinary bladder. Therefore a three-way Murillo catheter was placed with bladder irrigation performed in the emergency room with removal of some bloody urine initially and a few blood clots. However after 45 minutes the urine remained crystal-clear with no further clots or bleeding evident. Plan will be to leave the Murillo catheter in place for the next 48 to 72 hours depending if there is further bleeding or not. If you feel that your abdomen is becoming distended again with lower abdominal pain and very little urine in your drainage bag this would indicate that further clotting has occurred and blocked off the Murillo catheter. You would need to return to the emergency room if this occurred for irrigation of the bladder once again. Drink plenty of fluids to continue to flush the bladder. If no further bleeding is encountered in your drainage bag over the next 48 hours return to the emergency room on a.m. and the plan would be to remove your Murillo catheter at that time. You did receive an antibiotic Bactrim double strength tablet in the emergency room due to recurrent instrumentation of your urinary tract today. This is to prevent any secondary infection from occurring.
[2021-01-13 16:06] VITALS: BP 169/97; PULSE 75
[2021-01-13] MEDS ORDERED: Sulfamethoxazole/Trimethoprim 800-160 MG Tab PO ONE (17:19)
== END 2021-01-13 19:30 | disposition home or self-care (01) ==
LOC: JD.ED 14:53
DX: N40.1 Benign prostatic hyperplasia with lower urinary tract symptoms (principal); R33.8 Other retention of urine; I25.2 Old myocardial infarction; Z79.02 Long term (current) use of antithrombotics/antiplatelets; Z79.82 Long term (current) use of aspirin; Z79.899 Other long term (current) drug therapy
CPT/HCPCS: 51702; 99283; A9270

== ENCOUNTER 2021-01-15 08:26 | Emergency (ER) | payer MEDICARE, OTHER ==
--- NOTE | 2021-01-15 09:34 | EDM.PDOC ---
ED HPI GENERAL MEDICAL PROBLEM - General Chief Complaint: Wound Recheck Stated Complaint: CATH TAKEN OUT Time Seen by Provider: 01/15/21 08:30 Source of Information: Reports: Patient, Family - History of Present Illness INITIAL COMMENTS - FREE TEXT/NARRATIVE: 66-year-old male returns to the ED at my request after having a large bore three-way Murillo catheter placed due to urinary retention after cystoscopy procedure by urology services in [place] January 13. We irrigated the bladder and did obtain a few clots. I had asked him to return this morning and tentatively would we remove the Murillo catheter if the urine remains clear. The urine is still quite sanguinous without any clots. Decision made to review him tomorrow with plan to remove the Murillo catheter. Onset: Sudden Onset Date: 01/13/21 (Developed urinary retention after on the morning of January 13 cystoscopy procedure) Duration: Day(s): Location: Reports: Other (Reevaluation of need for Murillo catheter.) Quality: Reports: Burning (Catheter irritation causing some burning and discomfort) Severity: Mild Improves with: Reports: None Worsens with: Reports: None Context: Reports: Other (Three-way Murillo catheter placed 2 days ago with food irrigation for short period of time due to occlusion of the urethra with blood clots post cystoscopy. Patient is on aspirin and clopidogrel which was felt to be the cause of bleeding.). Denies: Activity, Exercise, Lifting, Sick Contact, Trauma - Related Data Allergies Allergy/AdvReac Type Severity Reaction Status Date / Time No Known Allergies Allergy Verified 07/12/20 17:36 Home Meds: Home Meds Rosuvastatin Calcium 20 mg PO DAILY 10/13/16 [History] Clopidogrel Bisulfate [Clopidogrel] 75 mg PO DAILY 12/09/19 [History] Losartan Potassium 12.5 mg PO DAILY 12/09/19 [History] Tamsulosin [Flomax] 0.4 mg PO DAILY 12/09/19 [History] metFORMIN HCl [Metformin HCl] 750 mg PO BID 12/09/19 [History] tadalafiL [Tadalafil] 20 mg PO ASDIRECTED PRN 12/09/19 [History] Aspirin [Kristian Chewable Aspirin] 81 mg PO BEDTIME 07/12/20 [History] Past Medical History HEENT History: Reports: Other (See Below) Other HEENT History: ear pain, nasal congestion, left ear otitis externa Cardiovascular History: Reports: [place], Stents Respiratory History: Reports: None Gastrointestinal History: Reports: None Genitourinary History: Reports: BPH, Prostate Disorder, Other (See Below) Other Genitourinary History: erectile dysfunction 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 Musculoskeletal History: Reports: Fracture, Other (See Below) Other Musculoskeletal History: right knee pain Neurological History: Reports: Seizure Psychiatric History: Reports: Anxiety, Depression Endocrine/Metabolic History: Reports: Other (See Below) Other Endocrine/Metabolic History: pre diabetes Hematologic History: Reports: None Immunologic History: Reports: None Oncologic (Cancer) History: Reports: None Dermatologic History: Reports: None - Infectious Disease History Infectious Disease History: Reports: Chicken Pox, Mumps - Past Surgical History HEENT Surgical History: Reports: Tonsillectomy Cardiovascular Surgical History: Reports: Coronary Artery Stent GI Surgical History: Reports: Appendectomy Male Surgical History: Reports: Vasectomy Musculoskeletal Surgical History: Reports: Shoulder Surgery Social & Family History - Family History Family Medical History: No Pertinent Family History - Caffeine Use Caffeine Use: Reports: None - Living Situation & Occupation Living situation: Reports: Occupation: Employed ED ROS GENERAL - Review of Systems Review Of Systems: See Below Constitutional: Denies: Fever, Chills, Malaise, Weakness, Fatigue HEENT: Reports: No Symptoms Respiratory: Reports: No Symptoms Cardiovascular: Reports: Blood Pressure Problem, Other (Coronary disease issues. Has [address]) Endocrine: Reports: No Symptoms GI/Abdominal: Reports: No Symptoms : Reports: Other (Enlarged prostate with recent cystoscopy. This was carried out January 13. Resulted in urinary retention likely from bleeding post procedure. Treated with three-way 22-gauge Murillo catheter with balloon irrigation for short period of time with clear urine obtained. Discharged home with Murillo ca) Musculoskeletal: Reports: Back Pain (Had facet joint injections done in [place] yesterday) Skin: Reports: No Symptoms Neurological: Reports: No Symptoms Psychiatric: Reports: No Symptoms Hematologic/Lymphatic: Reports: No Symptoms Immunologic: Reports: No Symptoms ED EXAM, GENERAL - Physical Exam Exam: See Below Exam Limited By: No Limitations General Appearance: Alert, WD/WN, No Apparent Distress, Other (Male) Exam: Other (Urine in the drainage bag and drainage tube is still sanguinous. Decision made to leave the Murillo catheter in place until tomorrow. No clots are observed.) Course - Radiology Interpretation Free Text/Narrative:: 66-year-old male returns to the ED at my request after having a large bore three-way Murillo catheter placed 2 days ago due to urinary retention after routine cystoscopy was performed by urologist at [facility] in [place] on the morning of January 13. Patient developed inability to void about 1500 hrs. and came into the ED. Boot irrigation was ran for short period of time to washout clots within the urinary bladder. The urin e was completely clear at the time of discharge. It was felt that he would likely be able to have his Murillo catheter removed this morning and I therefore an estimated return to the ED in this regard. Since there is still fair amount of sanguinous material in the urine this morning the decision made to leave the Murillo in until tomorrow at which time it will be removed. Departure - Departure Time of Disposition: 08:32 Disposition: Home, Self-Care 01 Condition: Good Clinical Impression: Murillo catheter status - Discharge Information *PRESCRIPTION DRUG MONITORING PROGRAM REVIEWED*: Not Applicable *COPY OF PRESCRIPTION DRUG MONITORING REPORT IN PATIENT RY: Not Applicable Referrals: Dayday Mendieta MD [Primary Care Provider] - Forms: ED Department Discharge Additional Instructions: Evaluation in the emergency room this morning in regards to placement of Murillo catheter 48 hours ago due to acute urinary retention post cystoscopy procedure. Since there was still a fair amount of sanguinous urine present in the catheter and drainage bag this morning decision made to leave the Murillo catheter in place until tomorrow morning. Please return to the emergency room tomorrow morning at which time I will review Murillo catheter with plans to remove it.
== END 2021-01-15 08:41 | disposition home or self-care (01) ==
LOC: JD.ED 08:26
DX: Z46.6 Encounter for fitting and adjustment of urinary device (principal); I25.2 Old myocardial infarction; N40.0 Benign prostatic hyperplasia without lower urinary tract symptoms; Z95.5 Presence of coronary angioplasty implant and graft; Z79.02 Long term (current) use of antithrombotics/antiplatelets; Z79.82 Long term (current) use of aspirin; Z79.899 Other long term (current) drug therapy
CPT/HCPCS: 99282

== ENCOUNTER 2021-01-16 08:26 | Emergency (ER) | payer MEDICARE, OTHER ==
--- NOTE | 2021-01-16 08:48 | EDM.PDOC ---
ED HPI GENERAL MEDICAL PROBLEM - General Chief Complaint: Wound Recheck Stated Complaint: CATHETER ISSUES Time Seen by Provider: 01/16/21 08:35 Source of Information: Reports: Patient, Family History Limitations: Reports: No Limitations - History of Present Illness INITIAL COMMENTS - FREE TEXT/NARRATIVE: 66-year-old male returns to the ED at my request after three-way Murillo catheter was placed 3 days ago for acute urinary retention post cystoscopy with bleeding into the urinary bladder causing urinary tract obstruction. Over the last 24 hours the urine has cleared up nicely. Therefore the Murillo catheter will be removed. 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 - Related Data Allergies Allergy/AdvReac Type Severity Reaction Status Date / Time No Known Allergies Allergy Verified 07/12/20 17:36 Home Meds: Home Meds Rosuvastatin Calcium 20 mg PO DAILY 10/13/16 [History] Clopidogrel Bisulfate [Clopidogrel] 75 mg PO DAILY 12/09/19 [History] Losartan Potassium 12.5 mg PO DAILY 12/09/19 [History] Tamsulosin [Flomax] 0.4 mg PO DAILY 12/09/19 [History] metFORMIN HCl [Metformin HCl] 750 mg PO BID 12/09/19 [History] tadalafiL [Tadalafil] 20 mg PO ASDIRECTED PRN 12/09/19 [History] Aspirin [Kristian Chewable Aspirin] 81 mg PO BEDTIME 07/12/20 [History] Past Medical History HEENT History: Reports: Other (See Below) Other HEENT History: ear pain, nasal congestion, left ear otitis externa Cardiovascular History: Reports: [place], Stents Respiratory History: Reports: None Gastrointestinal History: Reports: None Genitourinary History: Reports: BPH, Prostate Disorder, Other (See Below) Other Genitourinary History: erectile dysfunction 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 Musculoskeletal History: Reports: Fracture, Other (See Below) Other Musculoskeletal History: right knee pain Neurological History: Reports: Seizure Psychiatric History: Reports: Anxiety, Depression Endocrine/Metabolic History: Reports: Other (See Below) Other Endocrine/Metabolic History: pre diabetes Hematologic History: Reports: None Immunologic History: Reports: None Oncologic (Cancer) History: Reports: None Dermatologic History: Reports: None - Infectious Disease History Infectious Disease History: Reports: Chicken Pox, Mumps - Past Surgical History HEENT Surgical History: Reports: Tonsillectomy Cardiovascular Surgical History: Reports: Coronary Artery Stent GI Surgical History: Reports: Appendectomy Male Surgical History: Reports: Vasectomy Musculoskeletal Surgical History: Reports: Shoulder Surgery Social & Family History - Family History Family Medical History: No Pertinent Family History - Caffeine Use Caffeine Use: Reports: None - Living Situation & Occupation Living situation: Reports: Occupation: Employed ED ROS GENERAL - Review of Systems Review Of Systems: See Below Constitutional: Reports: No Symptoms HEENT: Reports: No Symptoms Respiratory: Reports: No Symptoms Cardiovascular: Reports: No Symptoms Endocrine: Reports: No Symptoms GI/Abdominal: Reports: No Symptoms : Reports: Other (Murillo catheter in appropriate position. Urine drainage bag contains normal colored urine.) Musculoskeletal: Reports: No Symptoms Skin: Reports: No Symptoms Neurological: Reports: No Symptoms Psychiatric: Reports: No Symptoms ED EXAM, RENAL/ - Physical Exam Exam: See Below Exam Limited By: No Limitations General Appearance: Alert, WD/WN, No Apparent Distress (Male) Exam: Circumcised (Murillo catheter in place.), Other Course - Radiology Interpretation Free Text/Narrative:: 66-year-old male attends the ED at my request today for review of placement of three-way Murillo catheter 3 days ago for acute urinary retention post his cystoscopy. Patient had acute bleeding into the urinary bladder which occluded his urethra causing urinary retention. He was treated with boot irrigation in the ED 3 days ago and a three-way Murillo cath was left in place in case of recurrence. When he returned yesterday the urine was very sanguinous. Elected to leave it in until this morning. Urine is now normal colored. I remove the Murillo catheter after deflating the balloon of 16 mils of saline. No problems encountered after Murillo removal. Patient will return if he has inability to void on his own over the next 8 hours. He is scheduled now to have a transurethral resection of his prostate with Dr. Chaney at [facility] in [place] on February 04. Departure - Departure Time of Disposition: 08:47 Disposition: Home, Self-Care 01 Condition: Fair Clinical Impression: Encounter for Murillo catheter removal - Discharge Information *PRESCRIPTION DRUG MONITORING PROGRAM REVIEWED*: Not Applicable *COPY OF PRESCRIPTION DRUG MONITORING REPORT IN PATIENT RY: Not Applicable Referrals: Dayday Mendieta MD [Primary Care Provider] - Additional Instructions: Murillo catheter removed through in the ED. Patient will return within the next 8 hours if unable to void on his own.
== END 2021-01-16 08:40 | disposition home or self-care (01) ==
LOC: JD.ED 08:26
DX: T83.091A Other mechanical complication of indwelling urethral catheter, initial encounter (principal); I25.2 Old myocardial infarction; Z79.82 Long term (current) use of aspirin; Z79.02 Long term (current) use of antithrombotics/antiplatelets; Z79.899 Other long term (current) drug therapy
CPT/HCPCS: 99282

== ENCOUNTER 2021-02-06 21:02 | Emergency (ER) | payer MEDICARE, OTHER ==
[2021-02-06 21:47] VITALS: BP 168/78; PULSE 72
[2021-02-06] MEDS ORDERED: Lidocaine 2% Jelly 10 ML Urojet MUCMEM ONE (21:52)
--- NOTE | 2021-02-06 22:04 | EDM.PDOC ---
ED HPI GENERAL MEDICAL PROBLEM - General Chief Complaint: Genitourinary Problem Stated Complaint: GENITOURINARY COMPLAINT Time Seen by Provider: 02/06/21 21:51 Source of Information: Reports: Patient, Family History Limitations: Reports: No Limitations - History of Present Illness INITIAL COMMENTS - FREE TEXT/NARRATIVE: 66-year-old male presents the emergency department with complaints of urinary retention. Pt states that he had laser surgery on his prostate with Dr. Chaney on 02/03 and now is unable to pee. Pt did have a catheter placed after surgery but it was removed on 02/04 with no problems. Pt states today he passed two tablespoons of blood since 1500 today but has 10/10 pain in his bladder and is unable to urinate. Denies any recent fever, chills, nausea, vomiting or diarrhea. Bladder Pain Score (Numeric/FACES): 10 - Related Data Allergies Allergy/AdvReac Type Severity Reaction Status Date / Time No Known Allergies Allergy Verified 02/06/21 21:47 Home Meds: Home Meds Rosuvastatin Calcium 20 mg PO DAILY 10/13/16 [History] Clopidogrel Bisulfate [Clopidogrel] 75 mg PO DAILY 12/09/19 [History] Losartan Potassium 12.5 mg PO DAILY 12/09/19 [History] Tamsulosin [Flomax] 0.4 mg PO DAILY 12/09/19 [History] metFORMIN HCl [Metformin HCl] 750 mg PO BID 12/09/19 [History] tadalafiL [Tadalafil] 20 mg PO ASDIRECTED PRN 12/09/19 [History] Aspirin [Kristian Chewable Aspirin] 81 mg PO BEDTIME 07/12/20 [History] Past Medical History HEENT History: Reports: Other (See Below) Other HEENT History: ear pain, nasal congestion, left ear otitis externa Cardiovascular History: Reports: [place], Stents Respiratory History: Reports: None Gastrointestinal History: Reports: None Genitourinary History: Reports: BPH, Prostate Disorder, Other (See Below) Other Genitourinary History: erectile dysfunction, laser prostate surgery [employer] History: Reports: None Musculoskeletal History: Reports: Fracture, Other (See Below) Other Musculoskeletal History: right knee pain Neurological History: Reports: Seizure Psychiatric History: Reports: Anxiety, Depression Endocrine/Metabolic History: Reports: Other (See Below) Other Endocrine/Metabolic History: pre diabetes Hematologic History: Reports: None Immunologic History: Reports: None Oncologic (Cancer) History: Reports: None Dermatologic History: Reports: None - Infectious Disease History Infectious Disease History: Reports: Chicken Pox, Mumps - Past Surgical History HEENT Surgical History: Reports: Tonsillectomy Cardiovascular Surgical History: Reports: Coronary Artery Stent Respiratory Surgical History: Reports: None GI Surgical History: Reports: Appendectomy Male Surgical History: Reports: Vasectomy Endocrine Surgical History: Reports: None Neurological Surgical History: Reports: None Musculoskeletal Surgical History: Reports: Shoulder Surgery Oncologic Surgical History: Reports: None Dermatological Surgical History: Reports: None Social & Family History - Family History Family Medical History: No Pertinent Family History - Tobacco Use Tobacco Use Status *Q: Never Tobacco User Second Hand Smoke Exposure: No - Caffeine Use Caffeine Use: Reports: Coffee - Recreational Drug Use Recreational Drug Use: No - Living Situation & Occupation Living situation: Reports: Occupation: Employed ED ROS GENERAL - Review of Systems Review Of Systems: Comprehensive ROS is negative, except as noted in HPI. ED EXAM, RENAL/ - Physical Exam Exam: See Below Exam Limited By: No Limitations General Appearance: Alert, WD/WN, Mild Distress Ears: Normal External Exam, Hearing Grossly Normal Nose: Normal Inspection Throat/Mouth: Normal Inspection, Normal Lips, Normal Voice, No Airway Compromise Head: Atraumatic Neck: Normal Inspection, Supple Respiratory/Chest: No Respiratory Distress, No Accessory Muscle Use Cardiovascular: Normal Peripheral Pulses, Regular Rate, Rhythm, No Edema, No Murmur GI/Abdominal: Normal Bowel Sounds, Soft, Tender (Suprapubic) (Male) Exam: Deferred Rectal (Males) Exam: Deferred Back Exam: Normal Inspection Extremities: Normal Inspection Neurological: Alert, Oriented, Normal Cognition Psychiatric: Normal Affect, Normal Mood Skin Exam: Warm, Dry, Intact, Normal Color, No Rash Lymphatic: No Adenopathy Course - Vital Signs Text/Narrative:: As stated above, patient presents with urinary retention status post laser prostate surgery. Patient does appear to be in some distress and he does have suprapubic tenderness noted. I have ordered for nursing staff to do the ultrasound of the bladder. Last Recorded V/S: Last Vital Signs Temp 97.6 F 02/06/21 21:44 Pulse 72 02/06/21 21:44 Resp 18 02/06/21 21:44 BP 168/78 H 02/06/21 21:44 Pulse Ox 99 02/06/21 21:44 - Orders/Labs/Meds Orders: Active Orders 24 hr Category Date Time Status Insert Murillo Catheter [Insert Urinary Catheter] [OM.PC] Care 02/06/21 22:00 Ordered Q24H Urinary Catheter Assessment [RC] ASDIRECTED Care 02/06/21 21:53 Active Labs: Laboratory Tests 02/06/21 02/06/21 Range/Units 22:25 22:41 WBC 7.00 (4.23-9.07) K/mm3 RBC 4.38 L (4.63-6.08) M/mm3 Hgb 12.7 L D (13.7-17.5) gm/dl Hct 37.8 L (40.1-51.0) % MCV 86.3 (79.0-92.2) fl MCH 29.0 (25.7-32.2) pg MCHC 33.6 (32.2-35.5) g/dl RDW Std Deviation 39.4 (35.1-43.9) fL Plt Count 181 (163-337) K/mm3 MPV 10.2 (9.4-12.3) fl Neut % (Auto) 73.7 H (34.0-67.9) % Lymph % (Auto) 16.1 L (21.8-53.1) % Clay % (Auto) 6.9 (5.3-12.2) % Eos % (Auto) 2.6 (0.8-7.0) Baso % (Auto) 0.4 (0.1-1.2) % Neut # (Auto) 5.16 (1.78-5.38) K/mm3 Lymph # (Auto) 1.13 L (1.32-3.57) K/mm3 Clay # (Auto) 0.48 (0.30-0.82) K/mm3 Eos # (Auto) 0.18 (0.04-0.54) K/mm3 Baso # (Auto) 0.03 (0.01-0.08) K/mm3 Urine Color Red H (Yellow) Urine Appearance Turbid H (Clear) Urine pH 7.0 (5.0-8.0) Ur Specific [place] 1.025 (1.005-1.030) Urine Protein 3+ H (Negative) Urine Glucose (UA) Negative (Negative) Urine Ketones Negative (Negative) Urine Occult Blood 3+ H (Negative) Urine Nitrite Negative (Negative) Urine Bilirubin Negative (Negative) Urine Urobilinogen 0.2 (0.2-1.0) Ur Leukocyte Esterase Negative (Negative) Urine RBC Too numerous to cnt H (0-5) /hpf Urine WBC 0-5 (0-5) /hpf Ur Squamous Epith Cells 0-5 (0-5) /hpf Urine Bacteria Few (FEW) /hpf Urine Mucus Not seen (FEW) /hpf Meds: Medications Discontinued Medications Generic Name Dose Route Start Last Admin Trade Name Ginny PRN Reason Stop Dose Admin Lidocaine HCl 10 ml 02/06/21 21:52 02/06/21 22:00 Lidocaine 2% Jelly 10 Ml Urojet MUCMEM 02/06/21 21:53 10 ml ONETIME ONE Administration - Re-Assessments/Exams Free Text/Narrative Re-Assessment/Exam: 02/06/21 22:02 Nursing staff notifies me that there was over 1100 mL of urine in the patient's bladder. I have ordered a Urojet and then the patient will have a Murillo catheter placed. We will also obtain a CBC to monitor the patient's hemoglobin levels. 02/06/21 22:43 Nursing staff reports that when they place the Murillo catheter and the patient he had very thick, ketchup-like drainage noted from the bladder. At that time she did irrigate the bladder with saline and states that after irrigation patient's drainage from Murillo catheter now appears to be the color of Marko-Aid. Patient does report significant relief of bladder discomfort. Will monitor the patient and await results of CBC. 02/06/21 22:44 Hematology reveals a WBC of 7.00, hemoglobin 12.7, hematocrit 37.8, platelet count 181 02/06/21 23:17 Patient states he did take a baby aspirin last evening. 02/07/21 00:00 Patient had been given a full 16 ounce glass of water to drink. Urine is starting to clear up. It is now pink-tinged. We will let the patient be discharged home with a Murillo catheter in place. He has been given instructions to call Dr. Chaney's office first thing Tuesday morning to schedule a follow- up appointment. 02/07/21 00:02 Urinalysis reveals 3+ protein, 3+ occult blood in urine RBC too numerous to count Departure - Departure Time of Disposition: 00:01 Disposition: Home, Self-Care 01 Condition: Good Clinical Impression: Retention of urine Hematuria, unspecified Qualifiers: Hematuria type: unspecified type Qualified Code(s): R31.9 - Hematuria, un specified - Discharge Information Instructions: Indwelling Urinary Catheter Care, Adult Referrals: Dayday Mendieta MD [Primary Care Provider] - Forms: ED Department Discharge Additional Instructions: You were seen in the emergency department with urinary retention after having a laser surgery on your prostate. Prior to catheter being placed your bladder was scanned and showed 1100 mL of urine in your bladder. Murillo catheter was placed and initially did drain dark red blood-tinged urine however after drinking fluids, urine did clear up to dark pink. Lab studies were completed and your hemoglobin levels were stable. Urinalysis did not show any sign of infection. Recommend drinking plenty of fluids over the weekend. You will need to call Dr. Chaney's office first thing Tuesday to schedule a follow-up appointment with him. Should you have any issues regarding your catheter do not hesitate returning to the emergency department. Sepsis Event Note (ED) - Evaluation Sepsis Screening Result: No Definite Risk - Focused Exam Vital Signs: Vital Signs Temp Pulse Resp BP Pulse Ox 02/06/21 21:44 97.6 F 72 18 168/78 H 99 - My Orders Last 24 Hours: My Active Orders 02/06/21 21:53 Urinary Catheter Assessment [RC] ASDIRECTED 02/06/21 22:00 Insert Murillo Catheter [Insert Urinary Catheter] [OM.PC] Q24H - Assessment/Plan Last 24 Hours: My Active Orders 02/06/21 21:53 Urinary Catheter Assessment [RC] ASDIRECTED 02/06/21 22:00 Insert Murillo Catheter [Insert Urinary Catheter] [OM.PC] Q24H
== END 2021-02-07 00:16 | disposition home or self-care (01) ==
LOC: JD.ED 21:02
DX: N40.1 Benign prostatic hyperplasia with lower urinary tract symptoms (principal); R33.8 Other retention of urine; R31.9 Hematuria, unspecified; I25.2 Old myocardial infarction; Z79.82 Long term (current) use of aspirin; Z79.02 Long term (current) use of antithrombotics/antiplatelets; Z79.899 Other long term (current) drug therapy
CPT/HCPCS: 36415; 51702; 81001; 85025; 99284-25

== ENCOUNTER 2021-11-23 20:08 | Emergency (ER) | payer MEDICARE, OTHER ==
[2021-11-23] MEDS ORDERED: diphenhydrAMINE 50 MG/ML SDV IM ONE (21:11)
[2021-11-23] MEDS ORDERED: methylPREDNISolone Sodium Succinate 125 MG/2 ML SDV IM ONE (21:11)
[2021-11-23 22:13] VITALS: BP 126/79; PULSE 60
== END 2021-11-23 22:33 | disposition home or self-care (01) ==
LOC: JD.ED 20:08
DX: T63.441A Toxic effect of venom of bees, accidental (unintentional), initial encounter (principal); I25.2 Old myocardial infarction; N40.0 Benign prostatic hyperplasia without lower urinary tract symptoms; Z79.899 Other long term (current) drug therapy; Z79.84 Long term (current) use of oral hypoglycemic drugs; Z79.82 Long term (current) use of aspirin
CPT/HCPCS: 96372; 99282; J1200; J2930; 99283

== ENCOUNTER 2022-08-26 08:15 | Day surgery (SDC) | payer MEDICARE, OTHER ==
[~2022-08-26 08:15] MED LIST changes: +Sodium Chloride 0.9% 10 ML Syringe FLUSH SCH
[2022-08-26] MEDS ORDERED: Propofol 200 MG/20 ML SDV ONE ×2 (09:44→09:45)
[2022-08-26] MEDS ORDERED: fentaNYL 100 MCG/2 ML SDV ONE (09:45)
[2022-08-26 11:51] VITALS: BP 114/73; PULSE 72
== END 2022-08-26 11:27 | disposition home or self-care (01) ==
LOC: JD.SDS 08:15
PROVIDERS: ATTEND Surgery
DX: D12.2 Benign neoplasm of ascending colon (principal); I25.10 Atherosclerotic heart disease of native coronary artery without angina pectoris; E78.00 Pure hypercholesterolemia, unspecified; E80.7 Disorder of bilirubin metabolism, unspecified; I10 Essential (primary) hypertension; M54.9 Dorsalgia, unspecified; G89.29 Other chronic pain; I25.2 Old myocardial infarction; N40.0 Benign prostatic hyperplasia without lower urinary tract symptoms; M19.90 Unspecified osteoarthritis, unspecified site; M10.9 Gout, unspecified; E11.9 Type 2 diabetes mellitus without complications; E55.9 Vitamin D deficiency, unspecified; Z87.891 Personal history of nicotine dependence; Z79.84 Long term (current) use of oral hypoglycemic drugs; Z79.899 Other long term (current) drug therapy
CPT/HCPCS: 45385; J2704; J3010; J7120; 00811; 99214

== ENCOUNTER 2023-11-25 23:10 | Emergency (ER) | payer MEDICARE, OTHER ==
[2023-11-25 23:28] VITALS: BP 122/72; PULSE 72
[2023-11-25 23:31] LABS: BASOPHILS PERCENT AUTO 0.3 % (0.0-1.0); EOSINOPHILS PERCENT AUTO 0.3 % (0.0-6.0); HEMATOCRIT 40.4 % (42.0-52.0); HEMOGLOBIN 13.6 gm/dl (14.0-18.0); IMMATURE GRAN ABSOLUTE AUTO 0.05 K/mm3 (0.00-0.05); IMMATURE GRAN PERCENT AUTO 0.3 % (0.0-0.4); LYMPHOCYTES ABSOLUTE AUTO 1.1 K/mm3 (1.0-4.8); LYMPHOCYTES PERCENT AUTO 7.3 % (24.0-44.0); MEAN CORPUSCULAR HEMOGLOBIN 28.8 pg (28.0-32.0); MEAN CORPUSCULAR HGB CONC 33.7 g/dl (32.0-36.0); MEAN CORPUSCULAR VOLUME 85.6 fl (83.0-99.0); MEAN PLATELET VOLUME 10.2 fl (9.4-12.4); MONOCYTES ABSOLUTE AUTO 0.9 K/mm3 (0.0-0.8); MONOCYTES PERCENT AUTO 5.5 % (0.0-8.0); NEUTROPHILS ABSOLUTE AUTO 13.6 K/mm3 (1.8-7.7); NEUTROPHILS PERCENT AUTO 86.3 % (41.0-71.0); PLATELET COUNT,PLT 192 K/mm3 (150-400); RED BLOOD CELL COUNT 4.72 M/mm3 (4.52-5.90); WHITE BLOOD CELL COUNT,WBC 15.71 K/mm3 (3.9-11.3)
[2023-11-25 23:52] LABS: A/G RATIO 1.4 (1-2); BILIRUBIN TOTAL 1.5 mg/dL (0.2-1.0); CALCIUM 9.2 mg/dL (8.5-10.1); CREATININE 1.4 mg/dL (0.7-1.3); EST CRCL DRUG DOSING (CG) 57.07 mL/min; PROTEIN TOTAL,TP 6.8 g/dl (6.4-8.2)
[2023-11-26] MEDS: Iopamidol 612 MG/ML 30 ML SDV IVPUSH ONE
[2023-11-26] MEDS: Iopamidol 612 MG/ML 100 ML Bottle IVPUSH ONE
[2023-11-26 01:30] LABS: APPEARANCE,URINE CLEAR (Clear); BILIRUBIN,URINE NEGATIVE (Negative); COLOR,URINE YELLOW (Yellow); GLUCOSE,URINE NEGATIVE (Negative); KETONES,URINE NEGATIVE (Negative); LEUKOCYTE ESTERASE,URINE NEGATIVE (Negative); NITRITE,URINE NEGATIVE (Negative); OCCULT BLOOD,URINE NEGATIVE (Negative); PROTEIN,URINE 1+ (Negative); UROBILINOGEN,URINE 0.2 (0.2-1.0)
[2023-11-26 01:38] LABS: BACTERIA,URINE FEW /hpf (FEW); EPITHELIAL CELLS,URINE 0-5 /hpf (0-5); MUCUS,URINE MODERATE /hpf (FEW); RBC,URINE 0-5 /hpf (0-5); WBC,URINE 0-5 /hpf (0-5)
== END 2023-11-26 01:52 | disposition home or self-care (01) ==
LOC: JD.ED 23:10
DX: S30.0XXA Contusion of lower back and pelvis, initial encounter (principal); I10 Essential (primary) hypertension; I25.10 Atherosclerotic heart disease of native coronary artery without angina pectoris; E78.00 Pure hypercholesterolemia, unspecified; I25.2 Old myocardial infarction; E11.9 Type 2 diabetes mellitus without complications; Z79.84 Long term (current) use of oral hypoglycemic drugs; Z79.899 Other long term (current) drug therapy; W11.XXXA Fall on and from ladder, initial encounter
CPT/HCPCS: 36415; 71045; 71260; 72125; 72170; 74177; 80053; 81001; 83735; 85025; 99284; Q9967